=== PATIENT | male | born 1995 | race African-American/Black ===

== ENCOUNTER 2017-01-03 | Inpatient (IN) | payer OTHER ==
[~2017-01-03] VITALS: Ht 188 cm; Wt 101.2 kg
--- NOTE | ~2017-01-03 | PA ---
Unit #: [id number] #: [id number] Patient: AIXA PAULINO [id number] [facility] [address] [place] [address] [id number] MR#: [id number] NAME: AIXA PAULINO ROOM: P207 Age: 21 Sex: M Admission Date: 01/03/2017 : 1995 Date of Assessment: 01/03/2017 Attending Physician: Cristopher Darby M.D. Admitting Physician: Cristopher Darby M.D. Primary Care Physician: Primary Care Physician No PSYCHIATRIC ASSESSMENT INFORMANTS The patient reliability, fair to poor informant; chart reliability, good. CHIEF COMPLAINT Suicidal ideation. HISTORY OF PRESENT ILLNESS Mr. Barba was admitted with the above-mentioned complaint. The patient was difficult to engage in interview, was awake for several question and had poor interaction, disorganized behavior, hearing voices, seeing demons and angels telling him to harm self and others. The patient asked about a plan said that he really did not know what was going on. His nurse reported upon arrival, the patient reported that he held a knife to his throat earlier in the day and was going to kill other people no one specific and then kill himself. The patient also reported the nurse that he has recently been discharged from [facility] and did not want to return there. The patient reported that he is currently unemployed, has one year of college, lives alone. The patient reports I have no money, reported that he does not have any support system, lack of energy, hopelessness, worthlessness, unkempt not bathed recently. The patient reported suicidal and homicidal ideation, wanted to kill people, hearing voices. The patient denied any legal charges. CURRENT MEDICATIONS Unknown. Denied any use of any drugs or alcohol. Needing inpatient admission at this time for psychiatric stabilization. PAST PSYCHIATRIC HISTORY Remarkable for history of recent treatment at [facility], details unknown. FAMILY HISTORY AND SOCIAL HISTORY The patient has a poor support system. Family psychiatric illness unknown. No known history of any abuse. MEDICAL HISTORY Unremarkable for any chronic medical illness. Musculoskeletal; muscle strength and tone, no atrophy or abnormal movement. Gait normal. MEDICATION HISTORY None. ALLERGIES Unit #: [id number] #: [id number] Patient: AIXA PAULINO No known drug allergies. SUBSTANCE ABUSE HISTORY None. REVIEW OF SYSTEMS HEENT: Eyes, clear. Ears, nose, mouth, and throat; clear. CARDIOVASCULAR: Unremarkable. RESPIRATORY: Unremarkable. GI: Unremarkable. : Unremarkable. SKIN: Unremarkable. LYMPH NODE: Unremarkable. NEUROLOGIC: Unremarkable. ENDOCRINE: Unremarkable. HEMATOLOGIC: Unremarkable. ALLERGIC/IMMUNOLOGIC: Unremarkable. MUSCULOSKELETAL: Muscle strength and tone, no atrophy or abnormal movement. Gait normal. MENTAL STATUS EXAMINATION CONSTITUTIONAL: Measurement of vital signs; temperature is 98.5, pulse 54, respirations 18, oxygen saturation 100%, blood pressure 101/56. Height 6 feet 2 inches, weight 223 pounds. GENERAL APPEARANCE: The patient dressed casually. The patient did not show any facial deformity. MUSCULOSKELETAL: Please see above. PSYCHIATRIC EXAMINATION Description of speech; regular rate, spontaneous. Description of thought process, circumstantial. Description of association, intact. Description of abnormal psychotic thinking; guarded, paranoid, mood lability, hallucinations, suicidal and homicidal ideation. Description of patient's judgment, concerning everyday activity, poor. Social situation, poor. Concerning psychiatric condition, poor. Complete mental status examination: General appearance, the patient dressed casually. Hygiene and grooming poor. Attention span and concentration, poor. Language, fair. Fund of knowledge, poor. Vocabulary, poor. Mood and affect, sad and dysphoric. Insight and judgment, fair to poor. ASSETS AND LIABILITIES Assets, the patient is articulate and able to take care of his ADL. Liability, history of psychosis and depression. ADMITTING DIAGNOSES Psychiatric: Schizophrenia, chronic paranoid type, F20.0; rule out substance abuse disorder. Secondary diagnosis: Deferred. Medical diagnosis: None. Stressors: Psychosocial stressors. PSYCHIATRIC PLAN AND TREATMENT GOAL AND DISCHARGE PLAN 1. Advised to admit the patient on the inpatient unit. Provide safe, supportive, and structured environment. Unit #: [id number] #: [id number] Patient: AIXA PAULINO 2. Ordered labs; CBC, CMP, UA, and UDS. 3. Special observation for psychosis. I advised to start the patient on Zyprexa 5 mg b.i.d. If needed, consider further adjustment of medication. Treatment goal; to attain euthymic mood, gain insight into his problem, and control psychotic symptom. DISCHARGE PLAN Plan to stabilize the patient and consider followup in outpatient program. ESTIMATED LENGTH OF STAY 7 days. Dictated by... Brenda Jones/segundo TD: 01/03/2017 13:41 JOB #: [id number] PSYCHIATRIC ASSESSMENT Page 1 of 1 X Cristopher Darby MD PSYCHIATRIC ASSESSMENT
--- NOTE | ~2017-01-03 | PN ---
Unit #: [id number] #: [id number] Patient: JAMESON PAULINO [id number] [facility] [address] [place] [address] [id number] MR#: [id number] NAME: JAMESON PAULINO ROOM: 12 Age: 21 Sex: M Admission Date: 01/03/2017 : 1995 Attending Physician: Cristopher Darby M.D. Admitting Physician: Cristopher Darby M.D. Primary Care Physician: Primary Care Physician Ester HUNT NOTES DATE OF SERVICE 01/04/2017 DISCUSSION Jameson is a 21-year-old male. The patient interviewed, chart reviewed. Obtained information from nursing staff. The patient continues to be guarded, paranoid, mood lability, but denied any thoughts of harming self or others. The patient is somewhat anxious, compliant with medication. The patient was redirectable, cooperative. No aggressive behavior. Complete Review of Systems: Unremarkable. MENTAL STATUS EXAMINATION General Appearance: The patient dressed casually. Attention span, concentration: Fair. Oriented in time, place, and person. Mood and affect labile. Speech: Monotone. Thought process: [place]. The patient denied any thoughts of harming self or others but guarded. Recent and remote memory: Poor. Insight and judgment: Poor. DIAGNOSIS Schizophrenia, chronic, paranoid type. ASSESSMENT/PLAN Advised to continue with current medication and therapeutic protocol. If needed, consider further adjustment of medication. Dictated by... Brenda Jones/garry TD: 01/05/2017 12:39 JOB #: [id number] Unit #: [id number] #: [id number] Patient: JAMESON PAULINO [facility] PROGRESS NOTES Page 1 of 1 X Cristopher Darby MD PROGRESS NOTE
--- NOTE | ~2017-01-03 | HP ---
Unit #: [id number] #: [id number] Patient: JAMESON PAULINO [id number] [facility] [address] [place] [address] [id number] I MR#: [id number] NAME: JAMESON PAULINO ROOM: 12 Age: 21 Sex: M Admission Date: 01/03/2017 : 1995 Attending Physician: Cristopher Darby M.D. Admitting Physician: Cristopher Darby M.D. Primary Care Physician: Primary Care Physician No HISTORY AND PHYSICAL HISTORY OF PRESENT ILLNESS Jameson is a 21 year old admitted to [address] [place] [address] with depression and verbalizing wanting to hurt himself. He also reports auditory hallucinations. He is a poor historian, so his history is taken from his chart. PAST MEDICAL HISTORY Nothing significant. PAST SURGICAL HISTORY Nothing reported. ALLERGIES Iodine. SOCIAL HISTORY Unknown if he smokes. Uses alcohol or illicit drug use. He refuses or is incapable of answering at this time. FAMILY HISTORY Medically not known. REVIEW OF SYSTEMS He does not answer questions appropriately. There are no reports of nausea, vomiting, or diarrhea. He has had no complaints or indications of chest pain or shortness of breath. CURRENT MEDICATIONS 1. Zoloft 50 mg q.a.m. 2. Invega 3 mg q.h.s. 3. Cogentin 1 mg b.i.d. 4. Lorazepam 1 mg q. 4 hours p.r.n. 5. Milk of Magnesia p.r.n. 6. Maalox p.r.n. 7. Tylenol p.r.n. PHYSICAL EXAMINATION GENERAL: Alert, well nourished. No apparent distress. VITAL SIGNS: Blood pressure 100/60, heart rate 78, respirations 16, and temperature 98.6. WEIGHT: 223. HEIGHT: 6 feet 2 inches. SKIN: Warm and dry without rash or lesion. HEENT: Normocephalic. TMs not viewed. Oral and nasal passages clear. Unit #: [id number] #: [id number] Patient: JAMESON PAULINO Conjunctivae clear. PERRLA. EOMs intact. NECK: Supple without lymphadenopathy or thyromegaly. HEART: Regular rate and rhythm without murmur. LUNGS: Clear. ABDOMEN: Soft, nontender. : Not done. EXTREMITIES: No evidence of cyanosis, clubbing or edema. Moves all without focal deficit. NEUROLOGICAL: Unable to complete extended exam. He does move all extremities without focal deficit. Hand vice president media relations is equal and gait is normal. IMPRESSION Psychiatric admission. RECOMMENDATIONS PSYCHIATRIC: Per psychiatrist. MEDICAL: I see no contraindication to participate in this facility's activities. MEDICAL PROGNOSIS Good. MEDICAL CONDITION Stable. Dictated by... Misa Jansen P.A.-C. for Brenda Gordon/garry TD: 01/04/2017 12:24 JOB #: [id number] HISTORY AND PHYSICAL Page 1 of 1 X Misa Jansen PA X HISTORY AND PHYSICAL
--- NOTE | ~2017-01-03 | DS ---
Unit #: [id number] #: [id number] Patient: AIXA PAULINO [id number] [facility] [address] [place] [address] [id number] MR#: [id number] NAME: AIXA PAULINO ROOM: [facility] Age: 21 Sex: M Admission Date: 01/03/2017 : 1995 Discharge Date: 01/05/2017 Attending Physician: Cristopher Darby M.D. Primary Care Physician: Primary Care Physician No DISCHARGE SUMMARY REASON FOR ADMISSION Anxiety, suicidal ideation DIAGNOSTIC STUDIES LABORATORY DATA: Unremarkable. HOSPITAL COURSE The patient was admitted to inpatient unit on January 03 and discharged on 01/05/2017. The patient was treated on the inpatient unit with chemical dependence group, psychoeducation, psychotherapy, (1) milieu. The patient was responsive to treatment. Subsequently patient was discharged with a plan to followup in outpatient program. DISCHARGE MEDICATIONS 1. Invega 6 mg at bedtime for psychosis. 2. Cogentin 1 mg twice daily for EPS symptom. 3. Zoloft 10 mg 50 mg in the morning for depression. 4. Cogentin 1 mg b.i.d. for EPS symptom. DISCHARGE DIAGNOSES PSYCHIATRIC 1. Schizophrenia chronic paranoid type F20.0. 2. Mood disorder NOS F32.9. SECONDARY DIAGNOSIS Deferred. MEDICAL DIAGNOSIS None. STRESSORS Psychosocial stressor. INSTRUCTION TO PATIENT The patient to followup in outpatient clinic as per executive secretary social welfare. CONDITION ON DISCHARGE The patient pleasant and cooperative. Denied any psychotic symptom or any suicidal ideation. Prognosis guarded. Diet and activity as tolerated. Unit #: [id number] #: [id number] Patient: AIXA PAULINO Dictated by... Brenda Jones/destiny TD: 01/06/2017 04:17 JOB #: [id number] DISCHARGE SUMMARY Page 1 of 1 X Cristopher Darby MD X DISCHARGE SUMMARY
[2017-01-04 09:46] LABS: BASOPHIL% 0.2 % (0-2.5); EOSINOPHIL# 0.1 X10e3 (0-0.7); EOSINOPHIL% 1.9 % (0.0-7.0); HEMATOCRIT 41.3 % (38.0-50.0); HEMOGLOBIN 13.6 gm/dL (13.0-16.0); LYMPHOCYTE# 1.2 X10e3 (1.0-3.5); MEAN PLATELET VOLUME 8.9 FL (6.5-11.5); MONOCYTE# 0.3 X10e3 (0-1.0); MONOCYTE% 7.3 % (3.0-12.0); NEUTROPHIL# 2.4 X10e3 (1.5-7.1); NEUTROPHIL% 60.6 % (40-75); PLATELET COUNT 182 X10e3 (140-420); RED BLOOD COUNT 4.69 X10e (3.90-5.60); RED CELL DISTRIBUTION WIDTH 13.6 % (11.0-15.5)
[2017-01-04 09:51] LABS: ALBUMIN SERUM 3.7 g/dL (3.5-5.0); BILIRUBIN,TOTAL 1.1 mg/dL (0.2-2.0); CALCIUM SERUM 9.2 mg/dL (8.4-10.2); CREATININE SERUM 1.3 mg/dL (0.6-1.4); GLOM FILT RATE Estimated 89.2 mL/min (>60); POTASSIUM 4.1 mmol/L (3.5-5.1); PROTEIN TOTAL SERUM 6.2 g/dL (6.0-8.3)
[2017-01-04 09:55] LABS: DIFF IND NO
[2017-01-05 09:55] LABS: URINE APPEARANCE CLEAR; URINE BILIRUBIN NEG (NEG); URINE BLOOD NEG (NEG); URINE COLOR YELLOW; URINE GLUCOSE NEG (NEG); URINE KETONE NEG (NEG); URINE LEUKOCYTE ESTERASE NEG (NEG); URINE NITRATE NEG (NEG); URINE PROTEIN NEG (NEG); URINE SPECIFIC GRAVITY 1.013 (1.003-1.035); URINE UROBILINOGEN 0.2 MG/DL (NEG)
== END 2017-01-05 09:45 | disposition home or self-care (01) | DRG 885 ==
LOC: P2S 04:17 → P1S 01-04 09:53
PROVIDERS: Psychiatry & Neurology Psychiatry
DX: F20.0 Paranoid schizophrenia (principal); F39 Unspecified mood [affective] disorder
CPT/HCPCS: 80053; 81003; 85025